=== PATIENT | female | born 1975 | race Asian ===

== ENCOUNTER 2022-09-13 11:20 | Outpatient (CLI) | payer BC, SELFPAY ==
--- NOTE | 2022-09-13 11:30 | CRLHL7_ITS ---
For Patients: As a result of the Century Cures Act, medical imaging exams and procedure reports are released immediately into your electronic medical record. You may view this report before your referring provider. If you have questions, please contact your health care provider. BILATERAL SCREENING MAMMOGRAM WITH COMPUTER-AIDED DETECTION AND TOMOSYNTHESIS TECHNIQUE: CC and MLO views were obtained. These mammographic images have been obtained using full-field digital technique. These mammographic images were interpreted with the benefit of computer-aided detection. Breast Tomosynthesis was used in this interpretation. COMPARISON FILM: 04/26/21, 04/23/20, 04/07/19. FINDINGS: The breasts are heterogeneously dense, which may obscure small masses IMPRESSION: There is no radiographic evidence for malignancy. ASSESSMENT: BI-RADS Category 1: Negative RECOMMENDATION: Routine screening mammogram in 1 year. A lay language report of this examination will be provided to the patient. Marshall Valadez M.D. Diagnostic Radiologist [email or web address] VERONICA/Dictated by: Marshall Valadez MD @ 09/13/2022 12:25:00 PM (Electronically Signed)
== END 2022-09-13 11:21 | disposition home or self-care (01) ==
LOC: MAMMO 11:21
PROVIDERS: PCP Family Medicine; Visit Provider Family Medicine
DX: Z12.31 Encounter for screening mammogram for malignant neoplasm of breast (principal); R92.2 Inconclusive mammogram
CPT/HCPCS: 77063; 77067

== ENCOUNTER 2022-11-01 08:00 | Outpatient (RCR) | payer BC, SELFPAY | END 2023-03-15 23:59 | disposition home or self-care (01) | PROVIDERS: PCP Family Medicine; Visit Provider Physician Assistant Surgical | DX: S62.308A Unspecified fracture of other metacarpal bone, initial encounter for closed fracture (principal); Z51.89 Encounter for other specified aftercare | CPT/HCPCS: 97110; 97140; 97165; X5282 ==

== ENCOUNTER 2023-09-12 07:17 | Outpatient (RCR) | payer BC, SELFPAY | END 2023-12-10 14:01 | disposition home or self-care (01) | PROVIDERS: PCP Family Medicine; Visit Provider Student in an Organized Health Care Education/Training Program | DX: M79.645 Pain in left finger(s) (principal); S66.4 Injury of intrinsic muscle, fascia and tendon of thumb at wrist and hand level; Z51.89 Encounter for other specified aftercare | CPT/HCPCS: 97110; 97165; X5282 ==

== ENCOUNTER 2025-05-13 07:53 | Outpatient (RCR) | payer BC, SELFPAY | END 2025-07-22 10:04 | disposition home or self-care (01) | PROVIDERS: PCP Family Medicine; Visit Provider Family Medicine | DX: M47.816 Spondylosis without myelopathy or radiculopathy, lumbar region (principal); M76.02 Gluteal tendinitis, left hip; Z51.89 Encounter for other specified aftercare | CPT/HCPCS: 97110; 97161 ==